=== PATIENT | female | born 1955 | race Asian ===

== ENCOUNTER 2022-04-16 10:13 | Outpatient (CLI) | payer MEDICARE | END 2022-04-16 10:14 | disposition home or self-care (01) | LOC: CSHMAMMO 10:13 | PROVIDERS: ATTEND Family Medicine | DX: Z12.31 Encounter for screening mammogram for malignant neoplasm of breast (principal) | CPT/HCPCS: 77063; 77067 ==

== ENCOUNTER 2023-04-19 08:39 | Outpatient (CLI) | payer MEDICARE | END 2023-04-19 08:40 | disposition home or self-care (01) | LOC: CSHMAMMO 08:39 | PROVIDERS: ATTEND Internal Medicine | DX: Z12.31 Encounter for screening mammogram for malignant neoplasm of breast (principal) | CPT/HCPCS: 77063; 77067 ==

== ENCOUNTER 2023-06-27 10:10 | Outpatient (CLI) | payer MEDICARE ==
[2023-06-27] MEDS ORDERED: Magnevist 469MG/ML 20 ML VIAL ONE (10:37)
== END 2023-06-27 10:11 | disposition home or self-care (01) ==
LOC: CSHMRI 10:10
PROVIDERS: ATTEND Student in an Organized Health Care Education/Training Program
DX: R42 Dizziness and giddiness (principal)
CPT/HCPCS: 70553; 82565; A9579